=== PATIENT | male | born 1980 | race Caucasian/White ===

== ENCOUNTER 2016-06-20 11:02 | Emergency (ER) | payer OTHER ==
[~2016-06-20] VITALS: Ht 195.6 cm; Wt 96.0 kg
[~2016-06-20 11:02] MED LIST: ALPR-411 PO; AZIT250T PO; NPR500 PO; PARO1TAB29 PO
[2016-06-20 11:17] VITALS: TEMP 36.5; Ht 195.6 cm; Wt 96.0 kg
[2016-06-20] MEDS ORDERED: CYCL10TA6 PO (11:53)
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
[2016-06-20 12:01] VITALS: BP 132/92; PULSE 73; O2SAT 99
== END 2016-06-20 12:01 | disposition home or self-care (01) ==
LOC: C.EDB 11:03 → C.EDD 12:01
DX: V89.2XXA Person injured in unspecified motor-vehicle accident, traffic, initial encounter (principal); M54.2 Cervicalgia